=== PATIENT | male | born 1995 | race Caucasian/White ===

== ENCOUNTER 2017-12-29 20:05 | Inpatient (IN) ==
--- NOTE | 2017-12-29 20:23 | Emergency Department Note ---
Disposition Clinical Impression: Suicidal ideation, Homicidal ideations Disposition: Still a Patient Condition: Fair Referrals: NONE,PCP [Primary Care Provider] - Forms: ED Satisfaction Letter Psych HPI - General Chief Complaint: ED Psychiatric Symptoms Stated Complaint: Psych eval Time Seen by Provider: 12/29/17 20:13 Source: patient Nursing Notes Reviewed: Yes Vital Signs Reviewed: Yes - History of Present Illness HPI Narrative: 22-year-old male presents emergency department with concern for suicidal and homicidal ideations. states that she brought her in today after showing more aggressive lately. She states that a month ago she saw the patient holding a loaded shotgun stating that he would kill himself. She also reports that patient has been having some homicidal thoughts. Stated they would run her over. Patient denies any auditory or visual hallucinations. Reports previous addiction opioid medication. Denies taking any substances today. Patient himself denies wanting to kill himself. reports that this is not true. Patient denies having an active plan for himself. - Related Data Home Medications Medication Instructions Recorded Confirmed No Known Home Drugs 01/26/17 01/26/17 Allergies Allergy/AdvReac Type Severity Reaction Status Date / Time meperidine [From Demerol] Allergy Hives Verified 01/26/17 19:08 All systems ED: reviewed and negative except as stated. Review of Systems: As Per HPI Constitutional: Denies: fever Cardiovascular: Denies: chest pain Respiratory: Denies: cough, dyspnea Gastrointestinal: Denies: abdominal pain, nausea, vomiting Genitourinary: Denies: urgency, dysuria, frequency Musculoskeletal: Denies: back pain Integumentary: Denies: rash Neurological: Denies: headache Psychiatric: Reports: suicidal thoughts, homicidal thoughts. Denies: auditory hallucinations, visual hallucinations Past Medical History - Past Medical History Medical history: Reports: no medical history Psychiatric history: Reports: no psych history - Social History Smoking Status: Current every day smoker Smokeless Tobacco Status: Yes Alcohol use: Reports: occasionally Drug use: Reports: none, cocaine, opiates, methamphetamine, IV Drug Use, other Physical Exam - General Limitations: no limitations General appearance: alert, in no apparent distress, anxious - Head Head exam: normocephalic - Eye Eye exam: Present: EOMI - ENT ENT exam: normal oropharynx - Neck Neck exam: Present: trachea midline - Chest Chest inspection: Present: symmetric chest wall rise - Respiratory Respiratory exam: Present: normal lung sounds bilaterally. Absent: respiratory distress, accessory muscle use - Cardiovascular Cardiovascular exam: Present: regular rate, normal rhythm, normal heart sounds - Abdominal Exam Abdominal exam: Present: soft, Non-Tender. Absent: distention, guarding, rebound, rigidity - Extremities Exam Extremities exam: Present: normal capillary refill - Back Exam Back exam: Present: full ROM - Neurological Exam Neurological exam: Present: alert, oriented X3 - Psychiatric Psychiatric exam: Present: agitated, anxious - Skin Skin exam: Present: warm, dry, intact Course Vital Signs Temperature 97.8 F 12/29/17 20:05 Pulse Rate 99 12/29/17 20:05 Respiratory Rate 16 12/29/17 20:05 Blood Pressure 127/87 12/29/17 20:05 O2 Sat by Pulse Oximetry 98 12/29/17 20:05 Temperature 97.8 F 12/29/17 20:19 Pulse Rate 99 12/29/17 20:19 Respiratory Rate 16 12/29/17 20:19 Blood Pressure 127/87 12/29/17 20:19 O2 Sat by Pulse Oximetry 98 12/29/17 20:19 Oxygen Delivery Oxygen Delivery Room Air Psych - MDM Narrative Medical decision making narrative: 22-year-old male presents emergency department with concern for suicidal ideations as well as homicidal ideations. Patient has had a pink slip placed. Patient hemodynamically stable in the emergency department. He does appear agitated and a Physical Exam. Patient Was Given 1 Milligram of Ativan. Patient denied any use of illicit substances, however, his urine was a presumptive positive for amphetamines, marijuana, cocaine. Tylenol level was negative, salicylate levels negative as well. Renal function is normal. No evidence of urinary tract infection on urinalysis. Patient has been evaluated by 1a. Disposition is currently pending their recommendations. SBAR has been provided to the night team. Vital Signs Temperature 97.8 F 12/29/17 20:05 Pulse Rate 99 12/29/17 20:05 Respiratory Rate 16 12/29/17 20:05 Blood Pressure 127/87 12/29/17 20:05 O2 Sat by Pulse Oximetry 98 12/29/17 20:05 Temperature 97.8 F 12/29/17 20:19 Pulse Rate 99 12/29/17 20:19 Respiratory Rate 16 12/29/17 20:19 Blood Pressure 127/87 12/29/17 20:19 O2 Sat by Pulse Oximetry 98 12/29/17 20:19 Oxygen Delivery Oxygen Delivery Room Air - Lab Data Result diagrams: 12/29/17 20:41 12/29/17 20:41 Lab Results 12/29/17 12/29/17 12/29/17 Range/Units 20:41 20:41 20:55 WBC 9.5 (4.3-11.1) K/mcL RBC 4.62 (4.19-5.50) M/mcL Hgb 14.7 (12.9-16.9) g/dL Hct 42.3 (37.5-50.1) % MCV 91.6 (83.0-100.0) fL MCH 31.8 (28.0-33.3) pg MCHC 34.8 (31.6-35.5) g/dL RDW 12.3 (11.5-14.5) % Plt Count 312 (140-400) K/mcL MPV 9.7 (9.4-12.4) fL Immature Gran % 0.1 (0-4) % Seg Neutrophils % 57.3 % Lymphocytes % 33.5 % Monocytes % 6.8 % Eosinophils % 1.9 % Basophils % 0.4 % Neutrophils # 5.5 (1.6-8.9) K/mcL Lymphocytes # 3.2 (0.6-4.6) K/mcL Monocytes # 0.7 (0.0-1.3) K/mcL Eosinophils # 0.2 (0.0-0.6) K/mcL Basophils # 0.0 (0.0-0.2) K/mcL Sodium 141 (136-145) mEq/L Potassium 4.2 (3.5-5.1) mEq/L Chloride 109 H (98-107) mEq/L Carbon Dioxide 25 (23-29) mEq/L BUN 16 (6-20) mg/dL Creatinine 0.95 (0.70-1.30) mg/dL Est GFR ( Amer) > 60 (> 60) Est GFR (Non-Af Amer) > 60 (> 60) BUN/Creatinine Ratio 17 (6-26) Glucose 118 H (70-105) mg/dL Calculated Osmolality 294 (280-300) Calcium 9.8 (8.6-10.3) mg/dL Urine Color Dark Yellow (Yellow) Urine Clarity Clear (Clear) Urine pH 6.0 (5.0-8.0) pH Units Ur Specific [place] > 1.030 H (1.010-1.025) Urine Protein 30 H (Neg-Trace) mg/dL Urine Glucose (UA) Normal (Normal) mg/dL Urine Ketones Trace H (Negative) mg/dL Urine Blood Negative (Negative) Urine Nitrite Negative (Negative) Urine Bilirubin Negative (Negative) Urine Urobilinogen Normal (Normal) mg/dL Ur Leukocyte Esterase Negative (Negative) Urine Microscopic RBC 5-15 H (0-3) per hpf Urine Microscopic WBC 0-3 (0-3) per hpf Ur Squamous Epith Cells Few (None-Few) per lpf Urine Bacteria None Seen (None-Few) per hpf Hyaline Casts None Seen (None-Few) per lpf Salicylates < 2.5 L (15.0-30.0) mg/dL Urine Opiates Screen (Ozpmfv=807) ng/mL Acetaminophen < 10 L (10-20) mcg/mL Ur Barbiturates Screen (Vzionb=413) ng/mL Ur Phencyclidine Scrn (Cutoff=25) ng/mL Ur Amphetamines Screen (Kjuerh=8484) ng/mL U Benzodiazepines Scrn (Nwagsf=670) ng/mL Urine Cocaine Screen (Cutoff= 300) ng/mL U Marijuana (THC) Screen (Cutoff = 50) ng/mL Ur Drug Screen Interp Ethyl Alcohol < 10 (Less than 10) mg/dL 12/29/17 Range/Units 20:55 WBC (4.3-11.1) K/mcL RBC (4.19-5.50) M/mcL Hgb (12.9-16.9) g/dL Hct (37.5-50.1) % MCV (83.0-100.0) fL MCH (28.0-33.3) pg MCHC (31.6-35.5) g/dL RDW (11.5-14.5) % Plt Count (140-400) K/mcL MPV (9.4-12.4) fL Immature Gran % (0-4) % Seg Neutrophils % % Lymphocytes % % Monocytes % % Eosinophils % % Basophils % % Neutrophils # (1.6-8.9) K/mcL Lymphocytes # (0.6-4.6) K/mcL Monocytes # (0.0-1.3) K/mcL Eosinophils # (0.0-0.6) K/mcL Basophils # (0.0-0.2) K/mcL Sodium (136-145) mEq/L Potassium (3.5-5.1) mEq/L Chloride (98-107) mEq/L Carbon Dioxide (23-29) mEq/L BUN (6-20) mg/dL Creatinine (0.70-1.30) mg/dL Est GFR ( Amer) (> 60) Est GFR (Non-Af Amer) (> 60) BUN/Creatinine Ratio (6-26) Glucose (70-105) mg/dL Calculated Osmolality (280-300) Calcium (8.6-10.3) mg/dL Urine Color (Yellow) Urine Clarity (Clear) Urine pH (5.0-8.0) pH Units Ur Specific [place] (1.010-1.025) Urine Protein (Neg-Trace) mg/dL Urine Glucose (UA) (Normal) mg/dL Urine Ketones (Negative) mg/dL Urine Blood (Negative) Urine Nitrite (Negative) Urine Bilirubin (Negative) Urine Urobilinogen (Normal) mg/dL Ur Leukocyte Esterase (Negative) Urine Microscopic RBC (0-3) per hpf Urine Microscopic WBC (0-3) per hpf Ur Squamous Epith Cells (None-Few) per lpf Urine Bacteria (None-Few) per hpf Hyaline Casts (None-Few) per lpf Salicylates (15.0-30.0) mg/dL Urine Opiates Screen Negative (Yoowmm=849) ng/mL Acetaminophen (10-20) mcg/mL Ur Barbiturates Screen Negative (Yeotmv=468) ng/mL Ur Phencyclidine Scrn Negative (Cutoff=25) ng/mL Ur Amphetamines Screen Positive H (Wfqtst=1537) ng/mL U Benzodiazepines Scrn Negative (Dpacwm=954) ng/mL Urine Cocaine Screen Positive H (Cutoff= 300) ng/mL U Marijuana (THC) Screen Positive H (Cutoff = 50) ng/mL Ur Drug Screen Interp See Below Ethyl Alcohol (Less than 10) mg/dL Psychiatric Medical Clearance - Medical Clearance Checklist Medical History: No Social History Section defined Current Vitals: Last Vital Signs Temp 97.8 F 12/29/17 20:19 Pulse 99 12/29/17 20:19 Resp 16 12/29/17 20:19 BP 127/87 12/29/17 20:19 Pulse Ox 98 12/29/17 20:19 Psychiatric Lab Panel: Drug Levels and Toxicity 12/29/17 12/29/17 20:41 20:55 Urine Opiates Screen Negative Acetaminophen < 10 L Ur Barbiturates Screen Negative Ur Phencyclidine Scrn Negative Ur Amphetamines Screen Positive H U Benzodiazepines Scrn Negative Urine Cocaine Screen Positive H U Marijuana (THC) Screen Positive H Ethyl Alcohol < 10 Abnormal Labs: Abnormal lab results Chloride 109 mEq/L (98-107) H 12/29/17 20:41 Glucose 118 mg/dL (70-105) H 12/29/17 20:41 Ur Specific [place] > 1.030 (1.010-1.025) H 12/29/17 20:55 Urine Protein 30 mg/dL (Neg-Trace) H 12/29/17 20:55 Urine Ketones Trace mg/dL (Negative) H 12/29/17 20:55 Urine Microscopic RBC 5-15 per hpf (0-3) H 12/29/17 20:55 Salicylates < 2.5 mg/dL (15.0-30.0) L 12/29/17 20:41 Acetaminophen < 10 mcg/mL (10-20) L 12/29/17 20:41 Ur Amphetamines Screen Positive ng/mL (Qnaqag=8613) H 12/29/17 20:55 Urine Cocaine Screen Positive ng/mL (Cutoff= 300) H 12/29/17 20:55 U Marijuana (THC) Screen Positive ng/mL (Cutoff = 50) H 12/29/17 20:55 Statement of Medical Clearance: I have evaluated the patient, reviewed diagnostic information, and certify that the patient's medical condition is sufficiently stable that transfer to the psychiatric unit does not pose a significant risk of deterioration.
[2017-12-29] MEDS ORDERED: *HR* LORazepam 1 MG TABLET PO ONE (20:30)
--- NOTE | 2017-12-29 20:36 | Emergency Department Note ---
Disposition Clinical Impression: Suicidal ideation Disposition: Still a Patient Referrals: NONE,PCP [Primary Care Provider] - Forms: ED Satisfaction Letter General Adult HPI - General Chief complaint: ED Psychiatric Symptoms Stated complaint: Psych eval Time Seen by Provider: 12/29/17 20:13 Source: patient Limitations: no limitations - History of Present Illness Pain Scale: 0 - Related Data Home Medications Medication Instructions Recorded Confirmed No Known Home Drugs 01/26/17 01/26/17 Allergies Allergy/AdvReac Type Severity Reaction Status Date / Time meperidine [From Demerol] Allergy Hives Verified 01/26/17 19:08 Past Medical History - Past Medical History Medical history: Reports: no medical history Psychiatric history: Reports: no psych history - Social History Smoking Status: Current every day smoker Smokeless Tobacco Status: Yes Alcohol use: Reports: occasionally Drug use: Reports: none, cocaine, opiates, methamphetamine, IV Drug Use, other Physical Exam - General Limitations: no limitations General appearance: alert, in no apparent distress Course - Reevaluation(s) Reevaluation #1: ATTESTATION NOTE I examined this patient and my medical decision-making was reviewed with the [employer]ER/PA/Advanced Practice Nurse/Resident Physician. I agree with the documented findings, disposition and treatment plan as described except to the extent set forth below. ED attending note: Patient seen with emergency medicine resident Dr. Noel Cota. We independently evaluated the patient. We independently had face-to -face contact with the patient. Please see a copy of his note for details of the history and physical, evaluation, management and disposition of this emergency Department patient. Briefly: 21-year-old male accompanied by his or homicidal and suicidal ideations. History of opioid dependence in the past. No known prior psychiatric history or inpatient admission. Patient has expressed with discrete thoughts of homicidal and suicidal thoughts. Patient is on age but he is cooperative and able to be verbally de-escalate it. Physical examination is benign patient get 2 mg oral Ativan and he will undergo medical clearance and evaluation by [facility]. Disposition pending. Patient has been pink slipped. Patient denies taking any substances or drinking any alcohol today Time: 20:35 Vital Signs Temperature 97.8 F 12/29/17 20:05 Pulse Rate 99 12/29/17 20:05 Respiratory Rate 16 12/29/17 20:05 Blood Pressure 127/87 12/29/17 20:05 O2 Sat by Pulse Oximetry 98 12/29/17 20:05 Temperature 97.8 F 12/29/17 20:19 Pulse Rate 99 12/29/17 20:19 Respiratory Rate 16 12/29/17 20:19 Blood Pressure 127/87 12/29/17 20:19 O2 Sat by Pulse Oximetry 98 12/29/17 20:19 Oxygen Delivery Oxygen Delivery Room Air
[2017-12-29 20:52] LABS: Basophils % 0.4 %; Eosinophils # 0.2 K/mcL (0.0-0.6); Eosinophils % 1.9 %; Hematocrit 42.3 % (37.5-50.1); Hemoglobin 14.7 g/dL (12.9-16.9); Immature Granulocytes % 0.1 % (0-4); Lymphocytes # 3.2 K/mcL (0.6-4.6); Lymphocytes % 33.5 %; Mean Corpuscular HGB Conc 34.8 g/dL (31.6-35.5); Mean Corpuscular Hemoglobin 31.8 pg (28.0-33.3); Mean Corpuscular Volume 91.6 fL (83.0-100.0); Mean Platelet Volume 9.7 fL (9.4-12.4); Monocytes # 0.7 K/mcL (0.0-1.3); Monocytes % 6.8 %; Neutrophils # 5.5 K/mcL (1.6-8.9); Platelet Count 312 K/mcL (140-400); Red Blood Count 4.62 M/mcL (4.19-5.50); Red Cell Distribution Width 12.3 % (11.5-14.5); Segmented Neutrophils % 57.3 %
[2017-12-29 21:06] LABS: Bilirubin,Urine Negative (Negative); Blood,Urine Negative (Negative); Clarity,Urine Clear (Clear); Color,Urine Dark Yellow (Yellow); Glucose,Urine (UA) Normal (Normal); Ketones,Urine Trace mg/dL (Negative); Leukocyte Esterase,Urine Negative (Negative); Nitrite,Urine Negative (Negative); Protein,Urine 30 mg/dL (Neg-Trace); Specific Gravity,Urine > 1.030 (1.010-1.025); Urobilinogen,Urine Normal (Normal)
[2017-12-29 21:08] LABS: Bacteria,Urine None Seen per hpf (None-Few); Hyaline Casts,Urine None Seen per lpf (None-Few); Squamous Epithelial Cell,Urine Few per lpf (None-Few); WBC,Urine 0-3 per hpf (0-3)
[2017-12-29 21:10] LABS: Acetaminophen < 10 mcg/mL (10-20); BUN/Creatinine Ratio 17 (6-26); Blood Urea Nitrogen 16 mg/dL (6-20); Calcium 9.8 mg/dL (8.6-10.3); Carbon Dioxide 25 mEq/L (23-29); Chloride 109 mEq/L (98-107); Ethanol < 10 mg/dL (Less than 10); Glucose 118 mg/dL (70-105); Osmolality,Calculated 294 (280-300); Potassium 4.2 mEq/L (3.5-5.1); Salicylate < 2.5 mg/dL (15.0-30.0); Sodium 141 mEq/L (136-145); eGFR For African Americans > 60 (> 60); eGFR For Non-African Americans > 60 (> 60)
[2017-12-29 21:29] LABS: Amphetamine Screen,Urine Positive ng/mL (Cutoff=1000); Barbiturate Screen,Urine Negative ng/mL (Cutoff=200); Benzodiazepines Screen,Urine Negative ng/mL (Cutoff=200); Cannabinoid Screen,Urine Positive ng/mL (Cutoff = 50); Cocaine Screen,Urine Positive ng/mL (Cutoff= 300); Opiate Screen,Urine Negative ng/mL (Cutoff=300); Phencyclidine Screen,Urine Negative ng/mL (Cutoff=25)
[2017-12-29] MEDS ORDERED: MOM Conc 10 ML UD.LIQ PO PRN (22:41)
[2017-12-29] MEDS ORDERED: *HR* LORazepam 1 MG TABLET PO PRN (22:41)
[2017-12-29] MEDS ORDERED: Haloperidol Lactate 5 MG/ML VIAL IM PRN (22:41)
[2017-12-29] MEDS ORDERED: Mag Hydrox/Al Hydrox/Simeth 30 ML UDC PO PRN (22:41)
[2017-12-29] MEDS ORDERED: Ibuprofen 400 MG TABLET PO PRN (22:41)
[2017-12-29] MEDS ORDERED: *HR* LORazepam 2 MG/ML VIAL IM PRN (22:41)
[2017-12-29] MEDS ORDERED: hydrOXYzine pamoate 25 MG CAPSULE PO PRN (22:41)
[2017-12-30] MEDS: Nicotine 21 MG PATCH.TD24 TD SCH (08:59)
--- NOTE | 2017-12-30 13:11 | Psychiatry History & Physical ---
Date of Encounter: 12/30/17 Time of Encounter: 13:00 History of Present Illness Patient Stated Chief Complaint: my girlfriend brought me in Medicare Admission Attestation: For traditional Medicare patients the provided hospital inpatient services are reasonable and necessary and in the case of services not specified as inpatient -only under 42 CFR 419.22 (n), that they are appropriately provided as inpatient services in accordance 42 CFR 412.3. For Critical Access Hospital the patient may reasonably be expected to be discharged or transferred to a hospital within 96 hours after admission to the Critical Access Hospital. Admitted From: Emergency Dept Plans for Post Hospital Care: Home History of Present Illness: Mr. Whitney is a 22 year old male The patient is a 22-year-old engaged white male. He lives in [place] in [facility]. Chief complaint "I am ready to go with my mom and my kids" my girlfriend brought me in. The patient was brought in for homicidal ideation and suicidal ideation History of present illness. The patient reports that he was having difficulty with communication he currently denies homicidal and suicidal ideation. However the ER notes indicate that he was having a problem. He did not threaten a specific person he did not threaten to kill himself but has a history of suicide attempts. Patient had evaluation in the emergency room where is felt to constitute a serious risk to self and others. His drug screen was positive for amphetamine for cocaine and for cannabis. The patient reports that he did go to his family' s house and began drinking. He does not have an explanation for the drugs but he says that he has used marijuana. The patient is in favor of medical marijuana and feels that it might be good treatment for back pain he reports his last use of marijuana was 2 days ago.. The patient lives in a house trailer. He started his family to move in and he has a fiancee who is name is Marleni. She is a nurse in [place] she brought him in. Apparently they were having disagreement and she identified a variety of risk factors. The patient is engaged to get but during a period of split up he had another relationship and had one child. He has 1 biological child and 2 children that are not his that he claims. The children come to visit him through Wednesday there is not visitation agreement her legal agreement. At age 20 the patient had a suicide attempt. He took a knife and cut the left volar aspect of the wrist near the area of the ulnar artery. At that time he reports he did a lot of cocaine. The patient has a history of ON . He was told to go to AA she did not. He was told to go to the local [facility] he did not he was not placed on any medicines for alcohol cravings. He reports no ongoing legal problems. He has no prior psychiatric history he did agree to let us talk to Marleni for additional information. Past medical history surgeries none illnesses none allergies seasonal and Demerol. Medications none dental. The patient has no dentist but has impacted wisdom teeth. PCP none Family history. The patient has psychiatric disorder reported all family members. There is known with an alcohol problem is no suicidal problem. The patient's father went to alf or alf 25 years ago. The patient's uncle went to alf for 6 months. All of them are described as "hotheads" there is no history of suicide in the family. The social history reveals that the patient has been a concrete report since age 12 he graduated from high school and started working his never been formally . He is missing work today. Review of systems is significant for urine jaw pain from the wisdom teeth the patient smokes cigarettes. His knee hurts previously seen for foreign body in the knee. Depressive symptoms are essentially negative. Under manic symptoms he has decreased need for sleep some flight of ideas excessive activity and thoughtlessness. He is not able to identify any attention deficit disorder treatment or symptoms. The patient does have counting and collecting and some checking. The patient used to have an anger problem. When he would get mad he would go out to a words or stream and yell and costs. The patient has a history of impulsive behavior. At times he will get mad out of proportion he denies road rage he denies physical destruction yelling or tantrums. Past Med Surg Social Fam HX - Past Medical History Medical history: no medical history - Past Psychiatric History Psychiatric history: Reports: no psych history, prior suicide attempt Family psychiatric history: Yes Family History of Suicide: None - Past Surgical History Surgical History: no surgical history - Social History Smoking Status: Current every day smoker Smokeless Tobacco Status: No Alcohol use: occasionally Drug use: cocaine, opiates, marijuana, methamphetamine, IV Drug Use, prescription drug abuse Occupational status: employed Current living situation: Home - Independent Activity Level: Independent ambulation Recent Out of Country Travel Within the Last 8 Weeks: No Exposure or Possible Exposure to Illness During Travel: No Medications & Allergies No Known Home Drugs 01/26/17 [History] 3 Allergy/AdvReac Type Severity Reaction Status Date / Time meperidine [From Demerol] Allergy Hives Verified 12/30/17 11:31 Review of Systems Constitutional: Denies: fever, chills, weakness, weight change Eyes: Denies: eye pain, vision change Ears, Nose, Throat: Reports: other. Denies: ear pain, throat pain, dental pain , hearing loss, congestion Cardiovascular: Denies: chest pain, palpitations, dyspnea on exertion Respiratory: Denies: cough, dyspnea, wheezes Gastrointestinal: Denies: abdominal pain, nausea, vomiting, diarrhea, constipation Genitourinary male: Denies: urgency, dysuria, frequency, genital lesions Musculoskeletal: Denies: joint swelling, joint pain Integumentary: Denies: rash, lesions, pruritus Neurological: Denies: headache, weakness, numbness, memory loss Psychiatric: Reports: suicidal ideation, memory loss, irritability Endocrine: Denies: fatigue, heat or cold intolerance Hematologic/Lymphatic: Denies: easy bruising, lymphadenopathy Allergic/Immunologic: Denies: urticaria, itchy eyes Exam - HEENT Head exam IM: Present: atraumatic Eye exam IM: Present: EOMI, normal appearance, PERRL ENT exam IM: Present: normal exam - Neurological Neurological exam: Present: CN II-XII intact - Respiratory Respiratory exam IM: Present: CTAB - GI/Abdominal GI/Abdominal exam IM: Present: normal bowel sounds, soft. Absent: tenderness - Extremities Extremities exam IM: Present: full ROM - Skin Skin exam IM: Present: dry, warm - Constitutional Vitals: Temp Pulse Resp BP Pulse Ox 97.9 F 76 14 97/53 98 12/30/17 09:26 12/30/17 09:26 12/30/17 09:26 12/30/17 09:26 12/29/17 20:19 General appearance: age & developmentally appropriate, well-groomed, well- nourished - Musculoskeletal Gait: normal Station: relaxed Strength & Tone: normal for patient - Psychiatric Patient Orientation: Yes Person, Yes Time, Yes Place Level of alertness: Alert Behavior: calm, cooperative Psychomotor activity: Normal Eye Contact: Maintains Eye Contact Mood Description: Euthymic/stable Affect description: congruent with mood, full range Speech Volume: Normal Speech pattern: normal rate, normal rhythm, normal tone, fluent, spontaneous Language & Vocabulary: consistent with education Thought Process: Linear, Goal Oriented Thought Content: Yes Suicidal ideation, Yes Homicidal ideation, No Overt delusions Perceptual Disturbances: No Auditory hallucinations, No Visual hallucinations Attention Span Ability: Capable of Focused Attention Memory Description: Grossly Intact Patient Reliability: Questionable Historian Fund of knowledge: Yes abstraction ability, Yes average, Yes aware of current events Intelligence Estimate: Average Judgment: Limited Insight: Minimal Results - Labs Labs: Laboratory Last Values WBC 9.5 K/mcL (4.3-11.1) 12/29/17 20:41 RBC 4.62 M/mcL (4.19-5.50) 12/29/17 20:41 Hgb 14.7 g/dL (12.9-16.9) 12/29/17 20:41 Hct 42.3 % (37.5-50.1) 12/29/17 20:41 MCV 91.6 fL (83.0-100.0) 12/29/17 20:41 MCH 31.8 pg (28.0-33.3) 12/29/17 20:41 MCHC 34.8 g/dL (31.6-35.5) 12/29/17 20:41 RDW 12.3 % (11.5-14.5) 12/29/17 20:41 Plt Count 312 K/mcL (140-400) 12/29/17 20:41 MPV 9.7 fL (9.4-12.4) 12/29/17 20:41 Immature Gran % 0.1 % (0-4) 12/29/17 20:41 Seg Neutrophils % 57.3 % 12/29/17 20:41 Lymphocytes % 33.5 % 12/29/17 20:41 Monocytes % 6.8 % 12/29/17 20:41 Eosinophils % 1.9 % 12/29/17 20:41 Basophils % 0.4 % 12/29/17 20:41 Neutrophils # 5.5 K/mcL (1.6-8.9) 12/29/17 20:41 Lymphocytes # 3.2 K/mcL (0.6-4.6) 12/29/17 20:41 Monocytes # 0.7 K/mcL (0.0-1.3) 12/29/17 20:41 Eosinophils # 0.2 K/mcL (0.0-0.6) 12/29/17 20:41 Basophils # 0.0 K/mcL (0.0-0.2) 12/29/17 20:41 Sodium 141 mEq/L (136-145) 12/29/17 20:41 Potassium 4.2 mEq/L (3.5-5.1) 12/29/17 20:41 Chloride 109 mEq/L (98-107) H 12/29/17 20:41 Carbon Dioxide 25 mEq/L (23-29) 12/29/17 20:41 BUN 16 mg/dL (6-20) 12/29/17 20:41 Creatinine 0.95 mg/dL (0.70-1.30) 12/29/17 20:41 Est GFR ( Amer) > 60 (> 60) 12/29/17 20:41 Est GFR (Non-Af Amer) > 60 (> 60) 12/29/17 20:41 BUN/Creatinine Ratio 17 (6-26) 12/29/17 20:41 Glucose 118 mg/dL (70-105) H 12/29/17 20:41 Calculated Osmolality 294 (280-300) 12/29/17 20:41 Calcium 9.8 mg/dL (8.6-10.3) 12/29/17 20:41 Urine Color Dark Yellow (Yellow) 12/29/17 20:55 Urine Clarity Clear (Clear) 12/29/17 20:55 Urine pH 6.0 pH Units (5.0-8.0) 12/29/17 20:55 Ur Specific [place] > 1.030 (1.010-1.025) H 12/29/17 20:55 Urine Protein 30 mg/dL (Neg-Trace) H 12/29/17 20:55 Urine Glucose (UA) Normal mg/dL (Normal) 12/29/17 20:55 Urine Ketones Trace mg/dL (Negative) H 12/29/17 20:55 Urine Blood Negative (Negative) 12/29/17 20:55 Urine Nitrite Negative (Negative) 12/29/17 20:55 Urine Bilirubin Negative (Negative) 12/29/17 20:55 Urine Urobilinogen Normal mg/dL (Normal) 12/29/17 20:55 Ur Leukocyte Esterase Negative (Negative) 12/29/17 20:55 Urine Microscopic RBC 5-15 per hpf (0-3) H 12/29/17 20:55 Urine Microscopic WBC 0-3 per hpf (0-3) 12/29/17 20:55 Ur Squamous Epith Cells Few per lpf (None-Few) 12/29/17 20:55 Urine Bacteria None Seen per hpf (None-Few) 12/29/17 20:55 Hyaline Casts None Seen per lpf (None-Few) 12/29/17 20:55 Salicylates < 2.5 mg/dL (15.0-30.0) L 12/29/17 20:41 Urine Opiates Screen Negative ng/mL (Towkvh=299) 12/29/17 20:55 Acetaminophen < 10 mcg/mL (10-20) L 12/29/17 20:41 Ur Barbiturates Screen Negative ng/mL (Dmgdlm=293) 12/29/17 20:55 Ur Phencyclidine Scrn Negative ng/mL (Cutoff=25) 12/29/17 20:55 Ur Amphetamines Screen Positive ng/mL (Myzbzr=7555) H 12/29/17 20:55 U Benzodiazepines Scrn Negative ng/mL (Vbskka=349) 12/29/17 20:55 Urine Cocaine Screen Positive ng/mL (Cutoff= 300) H 12/29/17 20:55 U Marijuana (THC) Screen Positive ng/mL (Cutoff = 50) H 12/29/17 20:55 Ur Drug Screen Interp See Below 12/29/17 20:55 Ethyl Alcohol < 10 mg/dL (Less than 10) 12/29/17 20:41 Assessment and Plan (1) Intermittent explosive disorder Current visit: Yes Status: Acute Plan: Admit inpatient for safety and stabilization, Close observation, Suicide Precautions per unit protocol Risks, benefits, side effects, alternatives discussed w/pt: Yes Patient agreeable to treatment: Yes Plans for Post Hospital Care: Home Estimated Length of Stay (Days): 3 (2) Cannabis abuse, uncomplicated Current visit: Yes Status: Acute Plan: Admit inpatient for safety and stabilization, Close observation, Suicide Precautions per unit protocol, Encourage participation in unit milieu, Group Therapy Risks, benefits, side effects, alternatives discussed w/pt: Yes Patient agreeable to treatment: Yes Plans for Post Hospital Care: Home (3) Suicidal ideation Current visit: Yes Status: Acute Plan: Monitor sleep, Secure weapons, Family/Supportive other meeting Risks, benefits, side effects, alternatives discussed w/pt: Yes Patient agreeable to treatment: Yes Plans for Post Hospital Care: Home (4) Homicidal ideations Current visit: Yes Status: Acute Plan: Group Therapy, Monitor sleep, Monitor appetite Risks, benefits, side effects, alternatives discussed w/pt: Yes Patient agreeable to treatment: Yes Plans for Post Hospital Care: Home
[2017-12-30] MEDS: hydrOXYzine pamoate 25 MG CAPSULE PO SCH (21:00)
[2017-12-31 08:36] VITALS: BP 120/89
[2017-12-31] MEDS: Nicotine 21 MG PATCH.TD24 TD SCH (08:50)
[2017-12-31] MEDS: hydrOXYzine pamoate 25 MG CAPSULE PO SCH (08:52)
--- NOTE | 2017-12-31 10:11 | Discharge Summary ---
Date of Encounter: 12/31/17 Time of Encounter: 10:05 Diagnosis - Discharge Diagnosis (1) Intermittent explosive disorder Status: Acute (2) Cannabis abuse, uncomplicated Status: Acute (3) Suicidal ideation Status: Resolved (4) Homicidal ideations Status: Resolved Medications - Discharge Medications Prescriptions: Citalopram [CeleXA] 20 mg PO DAILY 30 Days #30 tablet hydrOXYzine pamoate [HydrOXYzine Pamoate] 25 mg PO TID PRN 30 Days #60 capsule PRN Reason: Anxiety Quetiapine Fumarate [Seroquel] 50 mg PO HS 30 Days #60 tablet Citalopram [CeleXA] 20 mg PO DAILY 30 Days #30 tablet 12/31/17 [Rx] Quetiapine Fumarate [Seroquel] 50 mg PO HS 30 Days #60 tablet 12/31/17 [Rx] hydrOXYzine pamoate [HydrOXYzine Pamoate] 25 mg PO TID capsule 12/31/17 [Rx] hydrOXYzine pamoate [HydrOXYzine Pamoate] 25 mg PO TID PRN 30 Days #60 capsule 12/31/17 [Rx] 3 Allergy/AdvReac Type Severity Reaction Status Date / Time meperidine [From Demerol] Allergy Hives Verified 12/30/17 11:31 Provider Date of admission: 12/29/17 22:35 Primary care physician: PCP NONE Discharging clinician: Vishal Gray Psychiatry Exam - Constitutional Vitals: Temp Pulse Resp BP Pulse Ox 97.8 F 84 17 120/89 98 12/31/17 08:36 12/31/17 08:36 12/31/17 08:36 12/31/17 08:36 12/29/17 20:19 Hospital Course Hospital course: Mr. Whitney is a 22 year old male - Time Spent with Patient Total time spent providing and/or coordinating discharge services: Assessment and Plan - Patient/Caregiver Discharge Instructions Activity: resume usual activities as tolerated Diet: regular diet - Follow up Plan Follow up with: [facility] [Outside] - 01/06/18 10:00 am (The above appointment is with Alize Bernstein, counselor at [facility]. Your first appointment will be very thorough. You will be meeting with a counselor and a nurse, and developing a treatment plan. You will receive follow- up appointments for on-going services, which could include community support, mental health and substance abuse counseling, groups/partial hospitalization programming, medication assisted treatment, and psychiatric medication management. Please bring the following with you to your first visit to the clinic: 1) proof of income, 2) proof of address, 3) social security card , 4) photo ID, 5) your insurance card and 6) completed packet. If you do not bring these items, you may not be seen.) [facility] Director Of Human Resources Kay [Outside] - 01/10/18 1:45 pm (The above appointment is with Sheyla Lynch for primary healthcare and medication management services. Please arrive 15 minutes early to compelte paperwork. Please bring your insurance card, photo ID and a list of medications you take.) Overall status at discharge: Stable Disposition: Home, Self-Care Quality - Multiple Antipsychotics Patient discharged on 2 or more antipsychotic medications: No
== END 2017-12-31 11:37 | disposition home or self-care (01) | DRG 758 ==
LOC: EMEROO 20:05 → 1ANU 22:35 → SUATTDRO 22:35 → 1ANU 22:55
PROVIDERS: ADMIT Psychiatry & Neurology Psychiatry; ATTEND Psychiatry & Neurology Forensic Psychiatry